=== PATIENT | female | born 1940 | race Caucasian/White ===

== ENCOUNTER 2019-02-02 09:47 | Outpatient (CLI) | payer MEDICARE ==
[2019-02-02 12:29] LABS: Hematocrit 42.7 % (30.3-42.9); Hemoglobin 13.9 gm/dl (10.1-14.3); Mean Corpuscular HGB Conc 33 % (30-34); Mean Corpuscular Volume 84 fl (79-97); Platelet Count 211 K/mm3 (140-440); Red Blood Count 5.11 M/mm3 (3.65-5.03)
[2019-02-02 12:48] LABS: Alanine Aminotransferase 13 units/L (7-56); Albumin 4.4 g/dL (3.9-5); BUN/Creatinine Ratio 18; Blood Urea Nitrogen 9 mg/dL (7-17); Calcium 9.4 mg/dL (8.4-10.2); Chol/HDL Ratio 3.23 %; HDL Cholesterol 69 mg/dL (40-59); Hemolysis Index 1; LDL Cholesterol,Direct 156 mg/dL (50-130)
== END 2019-02-02 09:48 | disposition home or self-care (01) ==
LOC: LAB 09:47
PROVIDERS: ATTEND Internal Medicine
DX: E03.9 Hypothyroidism, unspecified (principal)
CPT/HCPCS: 36415; 80053; 80061; 82306; 82607; 83036; 84443; 85027

== ENCOUNTER 2019-08-19 08:53 | Outpatient (CLI) | payer OTHER, MEDICARE ==
[2019-08-19 11:04] LABS: Chol/HDL Ratio 3.97 %
== END 2019-08-19 08:54 | disposition home or self-care (01) ==
LOC: LAB 08:53
PROVIDERS: ATTEND Internal Medicine
DX: E78.5 Hyperlipidemia, unspecified (principal); R73.03 Prediabetes
CPT/HCPCS: 36415; 80061; 83036

== ENCOUNTER 2020-01-05 12:11 | Outpatient (CLI) | payer MEDICARE ==
[2020-01-05 12:45] LABS: Chol/HDL Ratio 3.43 %
== END 2020-01-05 12:12 | disposition home or self-care (01) ==
LOC: LAB 12:11
PROVIDERS: ATTEND Internal Medicine
DX: E03.9 Hypothyroidism, unspecified (principal); E78.5 Hyperlipidemia, unspecified
CPT/HCPCS: 36415; 80061; 84443

== ENCOUNTER 2020-04-03 11:44 | Outpatient (CLI) | payer MEDICARE ==
--- NOTE | 2020-04-03 13:08 | XRay Report ---
RIGHT HIP 2 VIEWS INDICATION: RIGHT HIP PAIN. COMPARISON: None. IMPRESSION: No acute osseous or soft tissue abnormality. 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 No evidence for osteonecrosis. Signer Name: Alfredo Ascencio Jr, MD Signed: 04/03/2020 1:03 PM Workstation Name: [id number]
== END 2020-04-03 11:45 | disposition home or self-care (01) ==
LOC: XRAY 11:44
PROVIDERS: ATTEND Internal Medicine
DX: M16.11 Unilateral primary osteoarthritis, right hip (principal)

== ENCOUNTER 2021-09-17 06:57 | Observation (INO) | payer MEDICARE ==
[2021-09-17] MEDS ORDERED: ASPIRIN EC 325 MG TAB PO ONE (07:19)
[2021-09-17 07:42] LABS: Basophils % (Auto) 0.4 % (0.0-1.8); Eosinophils % (Auto) 1.2 % (0.0-4.3); Hemoglobin 13.4 gm/dl (10.1-14.3); Lymphocytes # (Auto) 0.9 K/mm3 (1.2-5.4); Lymphocytes % (Auto) 25.8 % (13.4-35.0); Mean Corpuscular HGB Conc 32 % (30-34); Mean Corpuscular Volume 84 fl (79-97); Monocytes # (Auto) 0.3 K/mm3 (0.0-0.8); Monocytes % (Auto) 8.7 % (0.0-7.3); Platelet Count 195 K/mm3 (140-440); Red Cell Distribution Width 13.3 % (13.2-15.2)
[2021-09-17 07:53] LABS: Blood Urea Nitrogen 13 mg/dL (7-17); Calcium 9.4 mg/dL (8.4-10.2); Hemolysis Index 2; INR 0.81 (0.87-1.13)
[2021-09-17 07:55] LABS: BUN/Creatinine Ratio 22
[2021-09-17] MEDS: SODIUM CHLORIDE 0.9% 500 ML 500 ML IV SCH ×2 (08:26→09:42)
[2021-09-17] MEDS ORDERED: HEPARIN/NS 5000 UNIT/500ML 1,000 ML IR ONE (08:49)
[2021-09-17] MEDS ORDERED: MIDAZOLAM 2 MG/2 ML INJ ONE (08:49)
[2021-09-17] MEDS ORDERED: fentaNYL 100 MCG/2 ML INJ ONE (08:49)
[2021-09-17] MEDS ORDERED: NITROGLYCERIN SYRINGE 3 ML ONE (08:50)
[2021-09-17] MEDS: LIDOCAINE (2%) 20 MG/1 ML VIAL 20 ML MDV INFILTRATI ONE ×2 (09:32→09:40)
[2021-09-17] MEDS: HEPARIN 10,000 UNITS/10 ML VIAL ONE ×3 (09:37→09:50)
[2021-09-17] MEDS: VERAPAMIL 5 MG/2 ML INJ ONE ×2 (09:37→09:42)
[2021-09-17] MEDS ORDERED: ATROPINE 0.1% (1 MG/10 ML) CARDIAC SYRINGE ONE (10:00)
[2021-09-17] MEDS ORDERED: ALUM-MAG HYDROXIDE-SIMETHICONE 200-200-20MG/5ML ORAL LIQD 30 ML ONE (10:08)
[2021-09-17] MEDS ORDERED: PRASUGREL 10 MG TAB PO ONE (10:08)
--- NOTE | 2021-09-17 10:27 | Electrocardiograph Report ---
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
--- NOTE | 2021-09-17 11:40 | Short Stay Summary ---
Short Stay Documentation Date of service: 09/17/21 - History H&P: obtained from office - Allergies and Medications Current Medications: Allergies No Known Allergies Allergy (Unverified 07/21/14 10:16) Home Medications Medication Instructions Recorded Confirmed Last Taken Type Levothyroxine Sodium 100 mg PO DAILY 09/17/21 09/17/21 09/17/21 08:29 History Active Medications Sodium Chloride (Nacl 0.9% 500 Ml) 500 mls @ 50 mls/hr IV DIRECT MARY Stop: 09/17/21 17:59 Last Admin: 09/17/21 08:26 Dose: 50 mls/hr Documented by: - Brief post op/procedure progress note Date of procedure: 09/17/21 Pre-op diagnosis: chest pain Post-op diagnosis: other (CAD s/p PCI LAD) Procedure: [facility] Anesthesia: local Estimated blood loss: minimal - Hospital course Hospital course: Patient underweent cardiac cath with PCI yesterday with no complications. Patient resting in bed currently. Complaint of chest wall pain that was present prior to admission. No chest tightness/pressure currently - Disposition Condition at discharge: Good Short Stay Discharge Plan Activity: advance as tolerated Diet: low fat, low cholesterol, low salt Wound: keep clean and dry, per your surgeon's advice Follow up with: ADY SEE MD [Primary Care Provider] - 7 Days ERICA WEBB MD [Staff Physician] - 10/11/21 1:15 pm (Patient has a follow up appointment on 10/11/2021 at 1:15pm with Dr. Webb at our [place] location. Phone [phone])
--- NOTE | 2021-09-17 12:50 | Cardiac Catherization Report ---
DATE OF PROCEDURE: 09/17/2021 CARDIAC CATHETERIZATION REFERRING PHYSICIAN: Dr. Webb. INDICATIONS FOR PROCEDURE: The patient is a pleasant 80-year-old female with multiple risk factors, who has been having recurrent chest pain, very typical symptoms and is referred for left heart catheterization. Risks, benefits and alternatives discussed at length with the patient and family. All questions were addressed. 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 El's test in right hand is normal. 2 mL of 2% lidocaine used to anesthetize the right wrist. A standard 6-Khmer hydrophilic sheath used to cannulate the right radial artery via modified Seldinger technique. All exchanges performed to exchange a J-tip guidewire. A JL3.5 catheter was used to engage the left main. No dampening or ventricularization. Cineangiography performed in all projections. A JR4 catheter used to cross the aortic valve under fluoroscopic guidance. Left ventriculography performed in 30-degree DOWELL and 30-degree CYPRIOT projections via hand injections, catheter flushed. Manual pullback performed with continuous pressure monitoring. Catheter was used to engage the right coronary. No dampening or ventricularization. Cineangiography performed in all projections. Next, catheter removed from body over wire. DATA: Aortic pressure is 110/55, LV pressure is 110, LVEDP of 12. The patient remained in normal sinus rhythm throughout the procedure with PACs, no dysrhythmias. Left ventriculography reveals normal systolic performance, estimated ejection fraction 55-60%. No evidence of aortic stenosis. CORONARY ANATOMY: This is a right dominant system. The left main is without significant disease. The left circumflex is without significant disease. There is a 70% or so stenosis in the mid LAD, which is discrete FRANCOISE 2 flow. The right coronary is a moderate-sized vessel, courses AV groove, distally bifurcates in the posterior descending and posterolateral branches. No discrete stenoses noted right dominant system. At this point given history of recurrent typical chest pain and 70% mid LAD, we decided to perform physiologic assessment. The patient did develop some ST changes and chest pain during angiography of left system. We decided to do a physiologic assessment. Heparin given. We used a JL3.5 guide to engage the left main without difficulty. We used an iFR wire to cross the lesion without difficulty. After normalizing and zeroing appropriately, ____ iFR is 0.083 deeming this lesion, likely physiologically significant. Next, we decided to proceed with PCI with a 2.75 x 15 [place] drug-eluting stent deployed at 12 TELMA for 30 seconds. Excellent angiographic result. Next, we used intravascular ultrasound, which reveals a well-apposed, well-expanded stent, no dissection, no complication. Final angiogram reveals excellent result, FRANCOISE 3 flow throughout. At this point, the catheter was removed from the body over wire, sheath removed. Manual pressure used to achieve hemostasis. The patient will be loaded with Effient and aspirin. Abnormal ACTs confirmed. I directly supervised the administration of moderate sedation with fentanyl and Versed from 9:30 a.m. to 10:15 a.m. No immediate complications. CONCLUSIONS: 1. Severe single vessel coronary artery disease with 70% high mid LAD stenosis. A. Successful iFR directed ____ and IVUS guided PCI with placement of drug-eluting stent ([place] 2.7 x 15) with excellent final angiographic results and 0% residual stenosis. 2. No other significant disease noted in this right dominant system. 3. Normal left ventricular systolic performance, estimated ejection fraction 55-60%. 4. Normal LVEDP. The patient will be loaded with aspirin, Effient. We will also initiate statin therapy. The patient will be admitted for observation. The patient is clinically stable, chest pain free. The results of procedure were explained in length to the patient and family and all questions were addressed. Follow up with Dr. Webb in the office. TID: [id number] RECEIPT: [id number] SBMaria A/MAKSIM/IQB
[2021-09-17] MEDS ORDERED: ACETAMINOPHEN 325 MG TAB PO PRN (13:00)
[2021-09-17] MEDS ORDERED: HYDROcodone/ACETAMINOPHEN 5-325 MG TAB PO PRN (13:00)
[2021-09-18 06:18] LABS: Basophils % (Auto) 0.2 % (0.0-1.8); Eosinophils % (Auto) 0.8 % (0.0-4.3); Lymphocytes # (Auto) 1.2 K/mm3 (1.2-5.4); Lymphocytes % (Auto) 26.6 % (13.4-35.0); Mean Corpuscular HGB Conc 31 % (30-34); Mean Corpuscular Volume 84 fl (79-97); Monocytes # (Auto) 0.5 K/mm3 (0.0-0.8); Monocytes % (Auto) 10.6 % (0.0-7.3); Platelet Count 186 K/mm3 (140-440); Red Blood Count 5.06 M/mm3 (3.65-5.03); Red Cell Distribution Width 13.6 % (13.2-15.2)
[2021-09-18 06:22] LABS: Hematocrit 42.5 % (30.3-42.9); Hemoglobin 13.1 gm/dl (10.1-14.3)
[2021-09-18 06:36] LABS: Blood Urea Nitrogen 13 mg/dL (7-17); Calcium 8.6 mg/dL (8.4-10.2); Hemolysis Index 37
[2021-09-18 06:37] LABS: BUN/Creatinine Ratio 26
[2021-09-18 08:33] VITALS: BP 151/69
--- NOTE | 2021-09-18 09:20 | XRay Report ---
CHEST 1 VIEW INDICATION: post pci. COMPARISON: None FINDINGS: Support devices: None. Heart: Within normal limits. Lungs/Pleura: No acute air space or interstitial disease. Additional findings: None. IMPRESSION: No acute findings. Signer Name: Alfredo Ascencio Jr, MD Signed: 09/18/2021 9:15 AM Workstation Name: [id number]
[2021-09-18] MEDS ORDERED: ASPIRIN 81 MG TAB CHEW PO SCH (10:00)
--- NOTE | 2021-09-19 08:18 | Electrocardiograph Report ---
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
--- NOTE | 2021-09-19 08:40 | Electrocardiograph Report ---
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
[2021-09-19] MEDS ORDERED: PRASUGREL 10 MG TAB PO SCH (10:00)
== END 2021-09-18 16:08 | disposition home or self-care (01) ==
LOC: CATHLABREC 06:57 → 4A 11:43
PROVIDERS: ADMIT Internal Medicine; ATTEND Internal Medicine
DX: I25.10 Atherosclerotic heart disease of native coronary artery without angina pectoris (principal); I49.1 Atrial premature depolarization; E03.8 Other specified hypothyroidism; R94.31 Abnormal electrocardiogram [ECG] [EKG]; R07.89 Other chest pain
CPT/HCPCS: 36415; 71045; 80048; 84484; 85025; 85610; 85730; 92978; 93005; 93458; 93571; C1753; C1769; C1874; C1887; C1894; C9600; G0378; J1644; J1815; J2250; J3010; J3490; J7040; 92928; J0461; Q9967